=== PATIENT | female | born 1940 | race Caucasian/White ===

== ENCOUNTER 2018-05-16 11:47 | Emergency (ER) | payer MEDICARE, OTHER ==
--- NOTE | 2018-05-16 12:08 | UC ---
Respiratory Complaint HPI - HPI Summary HPI Summary: Patient is year old , who present today to the urgent care with for past days. since thursday, pt with a painful cough, sore throat, hard to sleep, body aches. headaches. pt states she has had a hard time getting phlem out. pt feeling getting chills. Associated symptoms: No sick contacts . No skin rash. Denies any new soap, detergent , cosmetics, food or a possible exposure. Denies any fever, chills, cough chest pain or shortness of breath . No diaphoresis. Denies any abdominal pain , nausea or vomiting , diarrhea or constipation. There is no stridor, grunting or audible wheezing drooling, chest retraction or dehydration. Denies any conjunctival redness, irritation, increased lacrimation. Denies any grittiness Denies any radicular symptoms, numbness , tingling , incontinence, saddle anesthesia , motor or sensory disturbance. Patient tried over the counter medication without much relief. - History of Current Complaint Stated Complaint: FLU LIKE Time Seen by Provider: 05/16/18 11:56 - Allergies/Home Medications Allergies/Adverse Reactions: Allergies Allergy/AdvReac Type Severity Reaction Status Date / Time erythromycin base Allergy Nausea And Verified 05/16/18 12:04 Vomiting Home Medications: Home Medications Acetaminophen [Tylenol Extra Strength] 1,000 mg PO ONCE PRN 05/16/18 [History Confirmed 05/16/18] Dm/PE/Acetaminophen/Doxylamine [Vicks Nyquil Severe Cold-Flu] 1 each PO ONCE PRN 05/16/18 [History Confirmed 05/16/18] Topiramate [Topiramate ER 100 mg cap] 1 tab PO DAILY 05/16/18 [History Confirmed 05/16/18] guaiFENesin [Mucinex] 1,200 mg PO ONCE PRN 05/16/18 [History Confirmed 05/16/18] PMH/Surg Hx/FS Hx/Imm Hx - Surgical History Surgical History: Yes Surgery Procedure, Year, and Place: BILATERAL KNEE REPLACEMENT;. BREAST REDUCTION;. ABDOMINPLASTY;. TONSILS CHILD;. LEFT FOOT SURGERY;. HYSTERECTOMY 1989; - Family History Known Family History: Positive: None - Social History Alcohol Use: None Substance Use Type: None Smoking Status (MU): Never Smoked Tobacco Physical Exam - Summary Physical Exam Summary: Physical Exam: Const: Appears well. No signs of apparent distress present. Alert and oriented x 3. Musculo: Walks with a normal gait. Head/Face: Atraumatic, normocephalic on inspection. Eyes: EOMI and PERRLA in both eyes. Conjunctivae clear. No discharge noted ENT: Hearing normal, TM normal appearing bilaterally, non bulging , non erythematous . No tenderness on palpation / manipulation of Tragus. No mastoid tenderness. No tenderness to palpation on maxillary and frontal sinus. No pharyngeal erythema or exudates . Uvula is midline. No cervical or submandibular lymphadenopathy noted. Respiratory: Respirations are unlabored. Lungs clear to auscultation bilaterally, no wheezing , rhonchi or rales noted . CVS: Regular rate and Rhythm, S1S2 normal , no murmurs identified. Extremities: Peripheral circulation is grossly normal. Pulses 2+ Abdomen : Soft non tender , nondistended , Bowel sounds present . No guarding , rebound tenderness or rigidity noted. Skin: No lesions or rash located on the upper extremities or on the lower extremities. Neuro: Cranial nerves II to XII intact, motor and sensory intact. DTR Intact bilaterally. Mood is normal. Affect is normal. Respiratory Course/Dx - Course Course Of Treatment: During the visit today, we obtained . We discussed the findings and further plan. I will prescribe the medication to the pharmacy . Patient expressed understanding . Discharge - Discharge Plan Referrals: Isdiro Brooks MD [Primary Care Provider] - Additional Instructions: Please start taking the medication as prescribed to the pharmacy . Follow up with your primary care doctor in 2 days. Please follow up with .. for the consult Patients blood pressure slightly high in Urgent care today , plan follow up with PCP for better control Return to Urgent care / ER if symptoms get worse.
[2018-05-16 12:16] VITALS: BP 98/52
[2018-05-16 12:35] LABS: Influenza A Molecular NEGATIVE (Negative); Influenza B Molecular NEGATIVE (Negative)
[2018-05-16] MEDS ORDERED: Albuterol/Ipratropium NEB.SOL* Albuterol 2.5 MG/Ipratropium 0.5 MG 3 ML INH ONE (12:42)
--- NOTE | 2018-05-16 13:08 | UC ---
Respiratory Complaint HPI - HPI Summary HPI Summary: 77 her old female with cold symptoms for approximately 5 days. She feels she has been wheezy although she has no history of asthma or COPD. She is a nonsmoker. She did get a flu shot in the fall. She feels like she is unable to raise sputum she states she is mildly short of breath when she is coughing however not when she is sitting talking to me. She denies any fever or chills. - History of Current Complaint Chief Complaint: UCRespiratory Stated Complaint: FLU LIKE Time Seen by Provider: 05/16/18 11:56 Hx Obtained From: Patient ?: No Onset/Duration: Gradual Onset Timing: Intermittent Episodes - [place]'s coughing during which she feels short of breath however she does not feel short of breath sitting talking to me. Severity Initially: Moderate Severity Currently: Moderate Pain Intensity: 6 Character: Cough: Nonproductive Aggravating Factors: Nothing Alleviating Factors: Nothing - Patient has an albuterol inhaler however she doesn't feel like it's been working appropriately. Associated Signs And Symptoms: Positive: Wheezing, URI, Nasal Congestion - Risk Factors Pulmonary Embolism Risk Factors: Negative - Allergies/Home Medications Allergies/Adverse Reactions: Allergies Allergy/AdvReac Type Severity Reaction Status Date / Time erythromycin base Allergy Nausea And Verified 05/16/18 12:04 Vomiting Home Medications: Home Medications Acetaminophen [Tylenol Extra Strength] 1,000 mg PO ONCE PRN 05/16/18 [History Confirmed 05/16/18] Dm/PE/Acetaminophen/Doxylamine [Vicks Nyquil Severe Cold-Flu] 1 each PO ONCE PRN 05/16/18 [History Confirmed 05/16/18] Topiramate [Topiramate ER 100 mg cap] 1 tab PO DAILY 05/16/18 [History Confirmed 05/16/18] guaiFENesin [Mucinex] 1,200 mg PO ONCE PRN 05/16/18 [History Confirmed 05/16/18] PMH/Surg Hx/FS Hx/Imm Hx Previously Healthy: Yes - Surgical History Surgical History: Yes Surgery Procedure, Year, and Place: BILATERAL KNEE REPLACEMENT;. BREAST REDUCTION;. ABDOMINPLASTY;. TONSILS CHILD;. LEFT FOOT SURGERY;. HYSTERECTOMY 1989; - Family History Known Family History: Positive: None - Social History Alcohol Use: Occasionally Substance Use Type: None Smoking Status (MU): Never Smoked Tobacco Review of Systems All Other Systems Reviewed And Are Negative: Yes ENT: Positive: Nasal Discharge Respiratory: Positive: Shortness Of Breath - Shortness of breath when coughing not when she is sitting talking to me. Nonproductive cough., Cough Cardiovascular: Positive: Negative Gastrointestinal: Positive: Negative Genitourinary: Positive: Negative Motor: Positive: Negative Neurovascular: Positive: Negative Musculoskeletal: Positive: Negative Neurological: Positive: Negative Psychological: Positive: Negative Is Patient Immunocompromised?: No Physical Exam Triage Information Reviewed: Yes Appearance: Well-Appearing, No Pain Distress, Well-Nourished Vital Signs: Initial Vital Signs Temp 97.9 F 05/16/18 11:55 Pulse 85 05/16/18 11:55 Resp 18 05/16/18 11:55 BP 98/52 05/16/18 11:55 Pulse Ox 96 05/16/18 11:55 Vital Signs Reviewed: Yes Eye Exam: Normal ENT Exam: Normal - Wears bilateral hearing aids. ENT: Positive: Pharynx normal, TMs normal, Uvula midline. Negative: Tonsillar swelling, Tonsillar exudate, Trismus, Muffled voice, Hoarse voice, Sinus tenderness Neck exam: Normal Neck: Positive: Supple, Nontender, No Lymphadenopathy Respiratory: Positive: No respiratory distress, No accessory muscle use, Rhonchi - Rhonchi in the left lower lobe posteriorly. Cardiovascular Exam: Normal Musculoskeletal Exam: Normal Neurological Exam: Normal Psychological Exam: Normal Skin Exam: Normal Respiratory Course/Dx - Course Course Of Treatment: REPORT: Alveolar consolidation at the retrocardiac LEFT lung base. Negative for pleural effusions or pneumothorax. The heart, pulmonary vasculature, and mediastinal contours are unremarkable. IMPRESSION: #. LEFT basilar pneumonia. Patient was given a DuoNeb treatment here and she felt like she was much improved with increased air movement. I am not able to hear rhonchi in the left lower lobe which appears on the chest x-ray. She is in no distress. I'm going to refill her albuterol metered-dose inhaler to use 2 puffs every 4-6 hours as needed for wheezing and we discussed the use of doxycycline. She is to call her primary care provider tomorrow to make an appointment for recheck. - Differential Dx/Diagnosis Provider Diagnosis: Community acquired pneumonia Discharge - Sign-Out/Discharge Documenting (check all that apply): Patient Departure All imaging exams completed and their final reports reviewed: Yes - Discharge Plan Condition: Good Disposition: HOME Prescriptions: Albuterol HFA INHALER* [Ventolin HFA Inhaler*] 2 puff INH Q4H PRN 5 Days #1 mdi PRN Reason: Wheezing DOXYcycline CAP(*) [DOXYcycline 100MG CAP(*)] 100 mg PO BID 7 Days #14 cap Patient Education Materials: Pneumonia (ED) Referrals: Isidro Brooks MD [Primary Care Provider] - Additional Instructions: Increase fluids. Use her albuterol inhaler 2 puffs every 4-6 hours as needed for wheezing or tight cough. Do not eat any dairy products, antacids or multivitamins 2 hours before taking doxycycline or 2 hours after taking doxycycline however be sure and take the doxycycline with food. Your primary care doctor tomorrow left him know that you have left lower lobe pneumonia and asked them when they would like to see you for recheck. If you develop worsening symptoms, shortness of breath or chest pain your to go to the emergency room for treatment. - Billing Disposition and Condition Condition: GOOD Disposition: Home - Attestation Statements Provider Attestation: I was available for consult. This patient was seen by the [facility]. The patient was not presented to , seen by or examined by me -Adonay Asher MD
== END 2018-05-16 13:34 | disposition home or self-care (01) ==
LOC: UCEAST 11:47
DX: J18.9 Pneumonia, unspecified organism (principal)
CPT/HCPCS: 71046; 99212; A9270-GY; G0463

== ENCOUNTER 2018-08-03 08:58 | Day surgery (SDC) | payer MEDICARE, OTHER ==
[~2018-08-03 08:58] MED LIST: Acetaminophen TAB* 325 MG PO PRN; Buffered Lidocaine 1% SYRIN* 1 ML/SYRINGE INTRADERM ONE
[2018-08-03] MEDS ORDERED: Midazolam* 1 MG/ML 2 ML VIAL (2 MG) ONE (10:43)
[2018-08-03] MEDS ORDERED: Tetracaine 0.5% OPTH.SOL 4 ML* 1 DROP BTL ONE (11:34)
[2018-08-03] MEDS ORDERED: Phenylephrine OPHTH SOL 2.5%* 2 ML ONE (11:34)
[2018-08-03] MEDS ORDERED: Tropicamide 1% OPTH.SOL* BTL ONE (11:34)
[2018-08-03] MEDS ORDERED: Ketorolac 0.5% OPHTH (NF) 0.5 % 5 ML BTL ONE (11:34)
[2018-08-03] MEDS ORDERED: Cyclopentolate 1% OPTH.SOL* 2 ML BTL ONE (11:34)
[2018-08-03] MEDS ORDERED: Neomycin/Polymy/Dex OPHTH.OIN* 3.5 GM ONE (11:34)
[2018-08-03] MEDS ORDERED: Lidocaine 1%** 5 ML VIAL ONE (11:34)
[2018-08-03 11:51] VITALS: BP 117/73
--- NOTE | 2018-08-03 12:25 | OP ---
OPERATIVE REPORT: DATE OF OPERATION: 08/03/18 DATE OF : 44 SURGEON: Dr. Denis Mims. FIELD SERVICE SPECIALIST: None. ANESTHESIA: Topical with intravenous sedation. PRE-OP DIAGNOSIS: Cataract with astigmatism, right eye. POST-OP DIAGNOSIS: Cataract with astigmatism, right eye. OPERATIVE PROCEDURE: Phacoemulsification and cataract extraction with posterior chamber intraocular toric lens implant, right eye. COMPLICATIONS: None. BLOOD LOSS: None. OPERATIVE FINDINGS: The patient was brought to the operating room and received intravenous sedation. A drop of Tetracaine was placed in her right eye. The patient was prepped and draped in the usual sterile fashion for ophthalmic surgery and attention was again directed to the right eye, where a spe culum was placed. A paracentesis was created at the 12 o'clock position and 0.1 cc of 1% preservativ e-free lidocaine was injected into the anterior chamber followed by DisCoVisc. It was noted that the pupil was not dilated well, so Omidria was added to the irrigating solution. The eye was digitally stabilized while a 2.75 mm keratome was used to create a triplanar clear corneal incision at the 9 o' clock position. A continuous curvilinear capsulorrhexis was created with a cystotome and Utrata forc eps. BSS on a cannula was used to hydrodissect the lens from the capsule. Phacoemulsification was p erformed in a [id number] technique to create 4 fragments, which were removed. Residual corti андрей material was removed with irrigation and aspiration. The capsule bag was polished. ProVisc was used to inflate the anterior chamber and the capsule. The ORA device was employed to help select the lens. Theoreticals on the ORA were used to notate the axis and a marking pen was used to highlight this point. An [id number] diopter lens was folded and inserted into the capsular bag. It was dialed to the appropriate axis of 002 degrees with a Sinskey hook. The lens was stabilized with the Sinskey hook while irrigation and aspiration was performed to remove viscoelastic from the eye. BSS on a ca nnula was used to hydrate the corneal wound. At the end of the case, the pupil was round. The lens was centered stable on axial line. The eye pressure appeared normal and the wound was watertight. T he speculum was removed and topical Maxitrol ointment was placed on the surface of the eye. The eye was closed, patched, and shielded and the patient was sent to recovery room in stable condition with postoperative instructions and followup appointment given. [id number]/[facility] #: [id number]
[2018-08-03] MEDS ORDERED: Phenylephr/Ketorolac 1%/0.3% OPH DROP BTL ONE (15:13)
== END 2018-08-03 11:39 | disposition home or self-care (01) ==
LOC: OREAST 08:58
PROVIDERS: ATTEND Ophthalmology
DX: H25.13 Age-related nuclear cataract, bilateral (principal); H25.23 Age-related cataract, morgagnian type, bilateral; H52.221 Regular astigmatism, right eye; E03.9 Hypothyroidism, unspecified; I10 Essential (primary) hypertension; E78.5 Hyperlipidemia, unspecified; M54.5 Low back pain; M25.511 Pain in right shoulder; M25.552 Pain in left hip; Z88.1 Allergy status to other antibiotic agents
CPT/HCPCS: A9270-GY; C9447; J2250; V2787

== ENCOUNTER 2018-08-10 12:24 | Day surgery (SDC) | payer MEDICARE, OTHER ==
[2018-08-10] MEDS ORDERED: fentaNYL* 50 MCG/ML 2 ML VIAL (100 MCG VIAL) ONE (13:39)
[2018-08-10] MEDS ORDERED: Midazolam* 1 MG/ML 2 ML VIAL (2 MG) ONE (13:39)
--- NOTE | 2018-08-10 14:32 | OP ---
DATE OF OPERATION: 08/10/18 [facility] DATE OF : 44 SURGEON: Dr. Denis Mims. VEST FINISHER: None. ANESTHESIA: Topical with intravenous sedation. PRE-OP DIAGNOSIS: Cataract, left eye. POST-OP DIAGNOSIS: Cataract, left eye. OPERATIVE PROCEDURE: Phacoemulsification and cataract extraction with posterior chamber intraocular lens implant, left eye. COMPLICATIONS: None. BLOOD LOSS: None. DESCRIPTION OF PROCEDURE: The patient was brought to the operating room and received a small amount of intravenous sedation. A drop of Tetracaine was placed in her left eye. She was prepped and draped in the usual sterile fashion for ophthalmic surgery and attention was directed to the left eye where a speculum was placed. A paracentesis was created at the 5 o'clock position and 0.1 cc of 1 percent preservative-free Lidocaine was injected into the anterior chamber followed by DisCoVisc. The eye was digitally stabilized while a 2.75 mm keratome was used to create a triplanar clear corneal incision at the 3 o'clock position. A continuous curvilinear capsulorrhexis was created with a cystotome and Utrata forceps. BSS on a cannula was used to hydrodissect the lens from the capsule. Phacoemulsification was performed in a divide-and- conquer technique to create four fragments which were removed. Residual cortical material was removed with irrigation and aspiration. DisCoVisc was used to inflate the capsular bag and an [id number] 25.0 diopter lens was folded and inserted into the capsular bag. DisCoVisc was removed using irrigation and aspiration. BSS on a cannula was used to hydrate the corneal stroma and seal the wound. At the end of the case the pupil was round and the lens was centered. The eye was of normal pressure and the wound was water tight. The speculum was removed and topical Maxitrol ointment was placed on the surface of the eye. The eye was closed, patched and shielded and the patient was sent to the recovery room in stable condition with post operative instructions and follow-up appointment given. [id number]/[facility] #: [id number] [facility]TDD
[2018-08-10] MEDS ORDERED: Phenylephrine OPHTH SOL 2.5%* 2 ML ONE (14:41)
[2018-08-10] MEDS ORDERED: Tetracaine 0.5% OPTH.SOL 4 ML* 1 DROP BTL ONE (14:41)
[2018-08-10] MEDS ORDERED: Neomycin/Polymy/Dex OPHTH.OIN* 3.5 GM ONE (14:41)
[2018-08-10] MEDS ORDERED: Tropicamide 1% OPTH.SOL* BTL ONE (14:41)
[2018-08-10] MEDS ORDERED: Cyclopentolate 1% OPTH.SOL* 2 ML BTL ONE (14:41)
[2018-08-10] MEDS ORDERED: Ketorolac 0.5% OPHTH (NF) 0.5 % 5 ML BTL ONE (14:41)
[2018-08-10] MEDS ORDERED: Lidocaine 1%** 5 ML VIAL ONE (14:41)
[2018-08-10 15:19] VITALS: BP 144/65
== END 2018-08-10 14:15 | disposition home or self-care (01) ==
LOC: OREAST 12:24
PROVIDERS: ATTEND Ophthalmology
DX: H25.12 Age-related nuclear cataract, left eye (principal); I10 Essential (primary) hypertension; E78.5 Hyperlipidemia, unspecified; J44.9 Chronic obstructive pulmonary disease, unspecified; E03.9 Hypothyroidism, unspecified
CPT/HCPCS: A9270-GY; J2250; J3010; V2632